=== PATIENT | male | born 1975 | race African-American/Black ===

== ENCOUNTER 2021-03-24 05:34 | Day surgery (SDC) | payer OTHER ==
[2021-03-22 12:19] VITALS: BMI 27.9
[2021-03-24] MEDS ORDERED: LIDOCAINE HCL/PF 2% SDV 5ML VIAL ONE (12:27)
[2021-03-24] MEDS ORDERED: PROPOFOL 20 ML ONE ×2 (12:29)
[2021-03-24] MEDS ORDERED: MIDAZOLAM HCL 2 MG/2 ML SINGLE DOSE VIAL ONE (12:30)
[2021-03-24] MEDS ORDERED: LIDOCAINE HCL 1%, 10 MG/ML (20ML VIAL) ONE (12:46)
[2021-03-24] MEDS ORDERED: BACITRACIN 15 GM TUBE TOPICAL OINTMENT ONE ×2 (12:46)
[2021-03-24] MEDS ORDERED: BUPIVACAINE HCL 100 ML ONE (12:46)
[2021-03-24] MEDS ORDERED: ceFAZolin SODIUM 1 GM VIAL IVPB ONE (13:00)
[2021-03-24] MEDS ORDERED: BUPIVACAINE HCL/PF 0.5% (5MG/ML) 10 ML VIAL IJ ONE (13:04)
[2021-03-24] MEDS ORDERED: LIDOCAINE HCL 1%, 10 MG/ML (20ML VIAL) NR ONE (13:04)
[2021-03-24 18:22] VITALS: BP 119/78; PULSE 71; TEMP 97.8
== END 2021-03-24 17:24 | disposition home or self-care (01) ==
LOC: JASU-SURG 05:34
PROVIDERS: ATTEND Urology
PROC: 0VTTXZZ Resection of Prepuce, External Approach (ICD-10-PCS; principal; 2021-03-24 12:00)
DX: N47.1 Phimosis (principal); I10 Essential (primary) hypertension; E11.9 Type 2 diabetes mellitus without complications
CPT/HCPCS: 82962; 88304-TC; 94760

== ENCOUNTER 2021-03-25 16:55 | Emergency (ER) | payer OTHER ==
[2021-03-25 17:02] VITALS: BP 121/81; PULSE 84; TEMP 98.6; BMI 27.9
== END 2021-03-25 18:18 | disposition home or self-care (01) ==
LOC: JER 16:55
DX: T81.31XA Disruption of external operation (surgical) wound, not elsewhere classified, initial encounter (principal); N48.89 Other specified disorders of penis
CPT/HCPCS: 99281-25